=== PATIENT | female | born 1985 | race Asian ===

== ENCOUNTER 2019-05-11 23:31 | Emergency (ER) | payer OTHER ==
[2019-05-11] MEDS ORDERED: DIPH25CA58 PO (23:54)
[2019-05-11] MEDS ORDERED: PRED20TA PO (23:54)
[2019-05-11] MEDS ORDERED: FAMO-63 PO (23:54)
--- NOTE | 2019-05-11 23:54 | PHYS DOC ---
Past History Past Medical History: No Pertinent History Past Surgical History: No Surgical History Smoking: Non-smoker Alcohol Use: None Drug Use: None Adult General Chief Complaint Chief Complaint: Rash HPI HPI 33-year-old female presents with several day history of pruritic rash. Reports it started on her ankle and has since spread throughout her body. Denies known exposure. Denies new detergents, soaps, shampoos, medicines, or foods. Denies known sick contacts. Denies fever or chills. Denies . Denies shortness of breath or throat swelling. Review of Systems Review of Systems Constitutional: Denies fever or chills Eyes: Denies redness or eye pain HENT: Denies nasal congestion or sore throat Respiratory: Denies cough or shortness of breath Cardiovascular: Denies chest pain or palpitations GI: Denies abdominal pain, nausea, or vomiting : Denies dysuria or hematuria Musculoskeletal: Denies back pain or joint pain Integument: Reports pruritic rash Neurologic: Denies headache, focal weakness or sensory changes Complete systems were reviewed and found to be within normal limits, except as documented in this note. Current Medications Current Medications Current Medications Medications (Trade) Dose Ordered Sig/Brad Start Time Stop Time Status Last Admin Dose Admin Dexamethasone (Decadron) 10 mg 1X ONCE 05/11/19 23:45 05/11/19 23:46 UNV Physical Exam Physical Exam Constitutional: Well developed, well nourished, no acute distress, non-toxic appearance HENT: Normocephalic, atraumatic, oropharynx moist, tongue normal Eyes: Conjunctiva normal, no discharge Neck: Normal range of motion, no tenderness, supple, no stridor Cardiovascular: Heart rate normal, regular rhythm Lungs & Thorax: Bilateral breath sounds clear to auscultation, no wheezing Skin: Warm, dry, erythematous rash scattered throughout trunk and to arms Extremities: No tenderness, ROM intact Neurologic: Alert and oriented X 3, no focal deficits noted Psychologic: Affect normal, judgement normal EKG EKG [] Radiology/Procedures Radiology/Procedures [] Course & Med Decision Making Course & Med Decision Making Patient presents with history of present illness and physical exam consistent for pruritic rash. Unknown exposure. No airway compromise. Symptomatic treatment provided with oral steroid, Benadryl, and Pepcid. Prescriptions provided. Patient stable for discharge with outpatient follow-up with PCP. Discussed findings and plan with patient, who acknowledges understanding and agreement. Ham Disclaimer Dragon Disclaimer This electronic medical record was generated, in whole or in part, using a voice recognition dictation system. Departure Departure: Impression: Primary Impression: Pruritic rash Disposition: 01 HOME, SELF-CARE Condition: STABLE Referrals: MANDI CODY DO (PCP) Patient Instructions: Rash, Arre-nf-Brdr Scripts Diphenhydramine Hcl (BENADRYL) 25 Mg Capsule 1 CAP PO Q4-6HRS PRN for RASH, #30 CAP 0 Refills Prov: MERCEDES HOUSE DO 05/11/19 Famotidine (PEPCID) 20 Mg Tablet 1 TAB PO BID for Rash, #10 TAB Prov: MERCEDES HOUSE DO 05/11/19 Prednisone (PREDNISONE) 20 Mg Tablet 2 TAB PO DAILY for Rash, #8 TAB Start this prescription tomorrow, Tuesday05/12/2019 Prov: MERCEDES HOUSE DO 05/11/19 MERCEDES HOUSE DO May 11, 2019 23:54
[2019-05-11] MEDS ORDERED: predniSONE 10 MG TABLET ONE (23:58)
[2019-05-12] MEDS ORDERED: FAMOTIDINE 20 MG TABLET PO ONE
[2019-05-12] MEDS ORDERED: diphenhydrAMINE HCL 25 MG CAPSULE PO ONE
[2019-05-12] MEDS ORDERED: DEXAMETHASONE 4 MG TABLET ONE (00:03)
[2019-05-12] MEDS ORDERED: DEXAMETHASONE 4 MG TABLET PO ONE (00:30)
[2019-05-13] MEDS ORDERED: DOXE50CA PO (01:40)
== END 2019-05-12 00:06 | disposition home or self-care (01) ==
LOC: ER 23:31
DX: L29.9 Pruritus, unspecified (principal); R21 Rash and other nonspecific skin eruption
CPT/HCPCS: 99283; Q0163

== ENCOUNTER 2019-05-13 00:56 | Emergency (ER) | payer OTHER ==
[~2019-05-13] VITALS: Ht 162.6 cm; Wt 59.0 kg
[~2019-05-13 00:56] MED LIST: DIPH25CA58 PO; FAMO-63 PO; PRED20TA PO
--- NOTE | 2019-05-13 01:03 | PHYS DOC ---
Past History Past Medical History: No Pertinent History Past Surgical History: No Surgical History Smoking: Non-smoker Alcohol Use: None Drug Use: None Adult General Chief Complaint Chief Complaint: ".... I have ... bad rash... it itches so much.... I can't sleep... I take meds... as told... " HPI HPI Patient is a 33 year old female who presents with above hx and complaints rash. A shunt seen previously for the hives/rash. Was started on Pepcid Benadryl and prednisone. No recent travel. No new foods or exposures. There has been a new blanket which she may be allergic. No history of previous exacerbations of hives this severe. Does have seasonal allergies primarily in spring. Has never been tested for specific allergies. Pt. follows with Dr. Cody. Review of Systems Review of Systems Constitutional: Denies fever or chills [] Eyes: Denies change in visual acuity, redness, or eye pain [] HENT: Denies nasal congestion or sore throat [] Respiratory: Denies cough or shortness of breath [] Cardiovascular: No additional information not addressed in HPI [] GI: Denies abdominal pain, nausea, vomiting, bloody stools or diarrhea [] : Denies dysuria or hematuria [] Musculoskeletal: Denies back pain or joint pain [] Integument: Patient complains of rash/hives[] Neurologic: Denies headache, focal weakness or sensory changes [] Endocrine: Denies polyuria or polydipsia [] All other systems were reviewed and found to be within normal limits, except as documented in this note. Family History Family History Noncontributory Current Medications Current Medications See nursing for home medications Allergies Allergies Allergies Coded Allergies Type Severity Reaction Last Updated Verified No Known Allergies Allergy Unknown 05/12/19 Yes Physical Exam Physical Exam Constitutional: Well developed, well nourished, no acute distress, non-toxic appearance. [] HENT: Normocephalic, atraumatic, bilateral external ears normal, oropharynx moist, no oral exudates, nose normal. Facial rash Eyes: PERRLA, EOMI, conjunctiva normal, no discharge. [] Neck: Normal range of motion, no tenderness, supple, no stridor. [] Cardiovascular:Heart rate regular rhythm, no murmur [] Lungs & Thorax: Bilateral breath sounds equal apex with scattered wheezes on auscultation [] Abdomen: Bowel sounds normal, soft, no tenderness, no masses, no pulsatile masses. [] Skin: Warm, dry, no erythema, extensive rash and hives over her entire body. Back: No tenderness, no CVA tenderness. [] Extremities: No tenderness, no cyanosis, no clubbing, ROM intact, no edema. [] Neurologic: Alert and oriented X 3, normal motor function, normal sensory function, no focal deficits noted. [] Psychologic: Affect anxious, judgement normal, mood normal. [] EKG EKG [] Radiology/Procedures Radiology/Procedures [] Course & Med Decision Making Course & Med Decision Making Pertinent Labs and Imaging studies reviewed. (See chart for details) Continue previous ordered meds. Add MDI 2 puffs 4 times a day. May use the pen 25 mg up to 4 times a day for severe itching. Warned patient could be sedating. Recommended allergy testing. Follow-up primary care. Return if any concerns. Noted marked improvement of symptoms after breathing treatments. 1. Rash/hives [] Dragon Disclaimer Dragon Disclaimer This electronic medical record was generated, in whole or in part, using a voice recognition dictation system. Departure Departure: Disposition: HOME/RESIDENCE PRIOR TO ADM Condition: STABLE Referrals: MANDI CODY DO (PCP) Scripts Doxepin Hcl (DOXEPIN HCL) 50 Mg Capsule 25 MG PO up to qid for rash, itching, #30 CAP Prov: NANCY SIMPSON MD 05/13/19 Ham Disclaimer This chart was dictated in whole or in part using Voice Recognition software in a busy, high-work load, and often noisy Emergency Department environment. It may contain unintended and wholly unrecognized errors or omissions. Dragon Disclaimer This chart was dictated in whole or in part using Voice Recognition software in a busy, high-work load, and often noisy Emergency Department environment. It may contain unintended and wholly unrecognized errors or omissions. NANCY SIMPSON MD May 13, 2019 01:03
[2019-05-13] MEDS ORDERED: DOXE50CA PO (01:40)
[2019-05-13] MEDS ORDERED: ALBUTEROL SULFATE 8GM INHALER. INH ONE (02:00)
[2019-05-13] MEDS ORDERED: IPRATRPIUM/ALBUTEROL 0.5/2.5MG 3 ML NEBU. NEB ONE (02:00)
[2019-05-13] MEDS ORDERED: methylPREDNISolone ACETATE 40 MG/ML VIAL. IM ONE (02:00)
[2019-05-13] MEDS ORDERED: DOXEPIN HCL 25 MG CAPSULE PO SCH (02:00)
[2019-05-13 03:12] LABS: BACTERIA,URINE FEW /HPF (0-FEW); BILIRUBIN,URINE NEG (NEG); CLARITY,URINE CLEAR; COLOR,URINE YELLOW; GLUCOSE,URINE NEG (NEG); NITRITE,URINE NEG (NEG); RBC,URINE OCC /HPF (0-2); UROBILINOGEN,URINE 0.2 mg/dL (0.2 mg/dL); WBC,URINE OCC /HPF (0-4)
[2019-05-13 03:13] LABS: BARBITURATES NEG (NEG); BENZODIAZEPINES NEG (NEG); CANNABINOIDS NEG (NEG); COCAINE NEG (NEG); METHADONE NEG (NEG); OPIATES NEG (NEG); PHENCYCLIDINE NEG (NEG); SQUAMOUS EPITHELIAL CELL,UR OCC /LPF
[2019-05-13 03:15] LABS: AMPHETAMINE/METHAMPHETAMINE NEG (NEG)
[2019-05-13 03:53] VITALS: BP 103/59
[2019-05-13] MEDS ORDERED: DOXEPIN HCL 10 MG CAPSULE PO SCH (21:00)
== END 2019-05-13 03:54 | disposition home or self-care (01) ==
LOC: ER 00:56
DX: R21 Rash and other nonspecific skin eruption (principal); L29.9 Pruritus, unspecified
CPT/HCPCS: 36415; 80307; 81001; 81025; 94640; 96372; 99284; J1030; J7613; J7620; 94664